=== PATIENT | male | born 1950 | race Caucasian/White ===

== ENCOUNTER 2016-11-16 13:45 | Outpatient (RCR) | payer OTHER ==
[~2016-11-16 13:45] MED LIST: AMLO10TA2 PO; ANDR1.624 TD; ASPI1TAB PO; ATOR40TA PO; ISOS60TA2 PO; LOSA25TA8 PO; LOSA50TA20 PO; METO-346 PO; MOTR200T44 PO; NITR4TASL SL; PLAV75TA38 PO; RANI15TA PO; TEST1GEL6 TOP
== END 2016-11-20 ==
LOC: M CR 13:45
PROVIDERS: ATTEND Internal Medicine
DX: Z51.89 Encounter for other specified aftercare (principal); Z95.1 Presence of aortocoronary bypass graft

== ENCOUNTER 2016-11-26 13:06 | Outpatient (RCR) | payer OTHER | END 2016-12-21 | LOC: M CR 13:06 | PROVIDERS: ATTEND Internal Medicine | DX: Z51.89 Encounter for other specified aftercare (principal); Z95.1 Presence of aortocoronary bypass graft ==

== ENCOUNTER → 2017-04-22 | Outpatient (REF) | payer OTHER ==
[~2017-04-22] MED LIST changes: -ATOR40TA PO; +ATOR40TA75 PO; +PLAV1TAB2 PO; -PLAV75TA38 PO
[2017-04-22 13:32] LABS: ANION GAP 7 MEQ/L (8-16); BLOOD UREA NITROGEN 12 MG/DL (7-18); CARBON DIOXIDE LEVEL 27 MEQ/L (21-32); CHLORIDE LEVEL 106 MEQ/L (98-107); CREATININE FOR GFR 1.01 MG/DL (0.70-1.30); GLOMERULAR FILTRATION RATE > 60.0 (>49); GLUCOSE, FASTING 85 MG/DL (80-110); POTASSIUM SERUM 4.8 MEQ/L (3.5-5.1); SODIUM LEVEL 140 MEQ/L (136-145)
== END ==
LOC: M LABDRAW1 09:45
PROVIDERS: ATTEND Student in an Organized Health Care Education/Training Program
DX: I10 Essential (primary) hypertension (principal)

== ENCOUNTER → 2017-05-29 | Outpatient (REF) | payer OTHER | LOC: M LAB REF 08:31 | PROVIDERS: ATTEND Internal Medicine | DX: E29.1 Testicular hypofunction (principal) ==

== ENCOUNTER → 2017-08-12 | Outpatient (CLI) | payer OTHER ==
[2017-08-12 14:41] LABS: ANION GAP 7 MEQ/L (8-16); BLOOD UREA NITROGEN 12 MG/DL (7-18); CALCIUM LEVEL 8.9 MG/DL (8.8-10.2); CARBON DIOXIDE LEVEL 28 MEQ/L (21-32); CHLORIDE LEVEL 105 MEQ/L (98-107); CREATININE FOR GFR 0.97 MG/DL (0.70-1.30); GLOMERULAR FILTRATION RATE > 60.0 (>49); GLUCOSE, FASTING 94 MG/DL (80-110); POTASSIUM SERUM 4.4 MEQ/L (3.5-5.1); SODIUM LEVEL 140 MEQ/L (136-145)
== END ==
LOC: M LABDRAW1 11:30
PROVIDERS: ATTEND Student in an Organized Health Care Education/Training Program
DX: I10 Essential (primary) hypertension (principal)

== ENCOUNTER → 2017-12-02 | Outpatient (REF) | payer OTHER ==
[2017-12-02 13:00] LABS: TESTOSTERONE 1039 NG/DL (241-827)
== END ==
LOC: M LAB REF 12:12
DX: E29.1 Testicular hypofunction (principal)
CPT/HCPCS: 84403

== ENCOUNTER → 2018-06-09 | Outpatient (REF) | payer OTHER ==
[2018-06-09 13:49] LABS: TESTOSTERONE 858 NG/DL (241-827)
== END ==
LOC: M LAB REF 12:44
DX: E29.1 Testicular hypofunction (principal)

== ENCOUNTER → 2019-05-04 | Outpatient (REF) | payer OTHER ==
[~2019-05-04] MED LIST changes: -AMLO10TA2 PO; +AMLO10TA5 PO; -ASPI1TAB PO; +ASPI81TA26 PO; +LOSA25TA14 PO; -LOSA25TA8 PO; -LOSA50TA20 PO; +LOSA50TA88 PO
== END ==
LOC: M LAB REF 12:29
PROVIDERS: ATTEND Internal Medicine
DX: E29.1 Testicular hypofunction (principal)

== ENCOUNTER → 2019-11-04 | Outpatient (REF) | payer OTHER | LOC: M LAB REF 12:50 | PROVIDERS: ATTEND Internal Medicine | DX: E29.1 Testicular hypofunction (principal) ==

== ENCOUNTER → 2020-05-04 | Outpatient (REF) | payer OTHER ==
[~2020-05-04] MED LIST changes: -AMLO10TA5 PO; +AMLO1TAB25 PO
== END ==
LOC: M LAB REF 17:18
PROVIDERS: ATTEND Internal Medicine
DX: E29.1 Testicular hypofunction (principal)

== ENCOUNTER → 2020-08-04 | Outpatient (CLI) | payer OTHER ==
[2020-08-04 13:37] LABS: ALBUMIN 4.2 GM/DL (3.2-5.2); PERCENT SATURATION 20.5 % (19.7-50.0)
== END ==
LOC: M WUC 10:13
PROVIDERS: ATTEND Orthopaedic Surgery
DX: Z01.818 Encounter for other preprocedural examination (principal); M25.569 Pain in unspecified knee; M17.10 Unilateral primary osteoarthritis, unspecified knee

== ENCOUNTER → 2020-11-15 | Outpatient (REF) | payer OTHER ==
[~2020-11-15] MED LIST changes: +ISOS1TAB36 PO; -ISOS60TA2 PO
== END ==
LOC: M LAB REF 13:29
PROVIDERS: ATTEND Internal Medicine
DX: E29.1 Testicular hypofunction (principal)

== ENCOUNTER → 2021-05-16 | Outpatient (REF) | payer OTHER | LOC: M LAB REF 16:29 | PROVIDERS: ATTEND Internal Medicine | DX: E29.1 Testicular hypofunction (principal) ==

== ENCOUNTER → 2021-06-15 | Outpatient (CLI) | payer OTHER ==
[~2021-06-15] MED LIST changes: +AMLO1TAB24 PO; +LOSA100T50 PO; +METO1TAB32 PO
== END ==
LOC: M LABSMTC 10:58
PROVIDERS: ATTEND Anesthesiology
DX: Z01.812 Encounter for preprocedural laboratory examination (principal)

== ENCOUNTER 2021-06-19 09:21 | Day surgery (SDC) | payer OTHER ==
[~2021-06-19] VITALS: Ht 175.3 cm; Wt 86.6 kg
[~2021-06-19 09:21] MED LIST changes: +NS 1,000 ML IV ONE
[2021-06-19] MEDS ORDERED: propofoL 200 MG/20 ML VIAL As Ordered ONE ×2 (09:46→10:11)
[2021-06-19] MEDS ORDERED: LIDOCAINE 2% 100MG/5ML SDV (FOR ANES.) As Ordered ONE (10:04)
--- NOTE | 2021-06-19 10:26 | ROOR ---
Patient Name: Jelani Price Procedure Date: 06/19/2021 9:57 AM Date of : 1950 Age: 71 Room: [facility] Gender: Male Note Status: Finalized Procedure: Colonoscopy Indications: High risk colon cancer surveillance: Personal history of colonic polyps, Last colonoscopy: February 2016 Providers: Christophe Phillips MD Referring MD: ROSIO DYE JR, MD Requesting Provider: Medicines: Monitored Anesthesia Care Complications: No immediate complications. Procedure: Pre-Anesthesia Assessment: - The heart rate, respiratory rate, oxygen saturations, blood pressure, adequacy of pulmonary ventilation, and response to care were monitored throughout the procedure. The Colonoscope was introduced through the anus and advanced to the terminal ileum, with identification of the appendiceal orifice and IC valve. The colonoscopy was performed without difficulty. The patient tolerated the procedure well. The quality of the bowel preparation was good. Findings: The perianal and digital rectal examinations were normal. Two sessile polyps were found in the proximal transverse colon and hepatic flexure. The polyps were diminutive in size. These polyps were removed with a cold snare. Resection and retrieval were complete. Small Internal Hemorrhoids. The exam was otherwise without abnormality on direct and retroflexion views. Impression: - Two diminutive polyps in the proximal transverse colon and at the hepatic flexure, removed with a cold snare. Resected and retrieved. - Small Internal Hemorrhoids. - The examination was otherwise normal on direct and retroflexion views. Recommendation: - Repeat colonoscopy in 5 years for surveillance. Procedure Code(s): --- Professional --- 95500, Colonoscopy, flexible; with removal of tumor(s), polyp(s), or other lesion(s) by snare technique Diagnosis Code(s): --- Professional --- Z86.010, Personal history of colonic polyps K63.5, Polyp of colon CPT copyright 2019 [employer]. All rights reserved. The codes documented in this report are preliminary and upon director of user experience review may be revised to meet current compliance requirements. Christophe Phillips MD Christophe Phillips MD 06/19/2021 10:26:14 AM Electronically signed by Christophe Phillips MD Number of Addenda: 0 Note Initiated On: 06/19/2021 9:57 AM Estimated Blood Loss: Estimated blood loss: none.
[2021-06-19 10:45] VITALS: BP 136/74
== END 2021-06-19 10:59 | disposition home or self-care (01) ==
LOC: M OPP 09:21
PROVIDERS: ATTEND Internal Medicine Gastroenterology
DX: Z12.11 Encounter for screening for malignant neoplasm of colon (principal); Z86.010 Personal history of colon polyps; K63.5 Polyp of colon; K64.8 Other hemorrhoids; Z79.82 Long term (current) use of aspirin; Z79.899 Other long term (current) drug therapy

== ENCOUNTER 2021-07-07 03:07 | Emergency (ER) | payer OTHER ==
[~2021-07-07] VITALS: Ht 172.7 cm; Wt 86.4 kg
[~2021-07-07 03:07] MED LIST changes: -NS 1,000 ML IV ONE
[2021-07-07 04:52] VITALS: BP 143/76
== END 2021-07-07 04:55 | disposition left against medical advice (07) ==
LOC: M ED 03:07
DX: Z53.29 Procedure and treatment not carried out because of patient's decision for other reasons (principal)

== ENCOUNTER → 2021-11-21 | Outpatient (REF) | payer OTHER ==
[~2021-11-21] MED LIST changes: +LOSA100T45 PO; -LOSA100T50 PO; +LOSA25TA13 PO; -LOSA25TA14 PO; +LOSA50TA28 PO; -LOSA50TA88 PO
== END ==
LOC: M LAB REF 12:31
PROVIDERS: ATTEND Internal Medicine
DX: E29.1 Testicular hypofunction (principal)